=== PATIENT | male | born 2005 | race Caucasian/White ===

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

== ENCOUNTER 2025-07-04 10:08 | Emergency (ER) | payer MEDICAID ==
[~2025-07-04] VITALS: Ht 190.5 cm; Wt 70.0 kg
[~2025-07-04 10:08] MED LIST changes: -CEPH-585 PO
[2025-07-04 10:16] VITALS: BP 119/79; PULSE 65; RESP 16; TEMP 98.1; O2SAT 98
--- NOTE | 2025-07-04 10:20 | Physician Documentation ---
History of Present Illness ~ Chief Complaint: Toe pain Stated Complaint: R FOOT PAIN Time Seen by MD: 10:18 Primary Medical Doctor: NO PMD HPI 19-year-old male who presents with pain and swelling to the 2nd toe of his right foot, patient reports that it has been increasing in pain over the last several days patient reports that he believes it began as an ingrown toenail. Tetanus witin 5 years: No Medication Reconciliation Allergies: Coded Allergies: No Known Allergies (Unverified , 06/28/24) Scheduled Lidocaine HCl (Lidocaine HCl Viscous), 15 ML PO Q6H Methylphenidate HCl (Methylphenidate ER), 1 TABLET PO DAILY, (Reported) Ondansetron 8mg ODT (Ondansetron Odt), 1 TAB PO Q6H Sulfamethoxazole/Trimethoprim (Bactrim Ds Tablet), 1 EACH PO BID Past Medical History Past Medical History: No Pertinent History, Extremity Fracture Past Surgical History: orthopedic surgeries Alcohol Use: None Drug Use: none Lives with: Family Lives In: Home Occupation: child Review of Systems ROS As stated above in the HPI, otherwise all systems are reviewed and negative. Physical Exam Vital Signs: Temperature: 98.1, Heart Rate: 65, Respiratory Rate: 16, BP: 119/79, Pulse Oximetry: 98, Weight: 70.000 Oxygen Flow Rate: 0 Physical Exam VITALS: Reviewed and as above. GENERAL: Alert, nontoxic appearing, no apparent distress. RESPIRATORY: No increased work of breathing, no respiratory distress, speaking in full clear sentences SKIN: Erythema of the distal 2nd toe of right foot, area tender to palpation, purulent discharge from lateral paronychium Progress Results/Orders Results/Orders Vital Signs 07/04/25 10:16 Temp 98.1 Pulse 65 Resp 16 B/P (MAP) 119/79 Pulse Ox 98 O2 Flow Rate 0 Medical Decision Making Findings This 19-year-old male presented with pain and swelling to his right 2nd toe, physical exam consistent with be an uncomplicated paronychia of the toe, treatment with oral antibiotics and warm compresses of the area. Reassuring patient reports no systemic symptoms including fever chills, physical exam additionally reassuring with erythema and swelling admitted to the distal toe without involvement of the remainder of the foot and the area is spontaneously draining. Patient will be discharged on course of oral antibiotics. Patient provided home care instructions, follow up instructions, and return to care precautions which he verbalized understanding of. Foot Diff Dx:Considerations: Include: Abrasion, Arthritis, Cellulitis, Gout, Hematoma, Ingrown toenail, Laceration, Neurovascular injury, Paronychia, Sprain, Septic Departure Time of Disposition: 11:00 Disposition: 01 HOME / SELF CARE / HOMELESS Impression: Primary Impression: Paronychia of second toe of right foot Condition: Improved Discharge Instructions: Paronychia, [id number] Additional Instructions: Use warm moist compresses on the area, otherwise keep the area clean dry and covered, take antibiotics as prescribed. Please follow up with your primary car e provider in the next few days. Please return to the emergency department for any new or worsening concerning symptoms. Referrals: NO PRIMARY CARE PROVIDER (PCP) Prescriptions Sulfamethoxazole/Trimethoprim (Bactrim Ds Tablet) 800 Mg-160 Mg Tablet 1 EACH PO BID for 5 Days, #10 TAB Prov: ETHAN HEWITT 07/04/25 Education Educated: Patient Educated regarding: diagnosis, treatment, prognosis, need for follow up Signature Scribe Signature: No scribe Attestation: The note accurately reflects work and decisions made by me.GIOVANNI Luther 07/04/25 21:11 ETHAN HEWITT Jul 04, 2025 10:20
[2025-07-04] MEDS ORDERED: SULF1TAB49 PO (11:03)
== END 2025-07-04 11:21 | disposition home or self-care (01) ==
LOC: ER 10:09
DX: L03.031 Cellulitis of right toe (principal)
CPT/HCPCS: 99283

== ENCOUNTER 2025-08-16 17:33 | Emergency (ER) | payer MEDICAID ==
[~2025-08-16] VITALS: Ht 188 cm; Wt 77.7 kg
[2025-08-16 17:39] VITALS: BP 127/71; PULSE 95; RESP 16; TEMP 97.3; O2SAT 97
== END 2025-08-16 20:25 | disposition left against medical advice (07) ==
LOC: ER 17:34
DX: R22.0 Localized swelling, mass and lump, head (principal); Z53.21 Procedure and treatment not carried out due to patient leaving prior to being seen by health care provider
CPT/HCPCS: 99281